=== PATIENT | female | born 1970 ===

== ENCOUNTER 2023-06-23 12:44 | Outpatient (CLI) | payer MEDICARE, MEDICAID | END 2023-06-23 23:59 | disposition home or self-care (01) | LOC: RAD 12:44 | PROVIDERS: ATTEND Nurse Practitioner Family | DX: Z12.2 Encounter for screening for malignant neoplasm of respiratory organs (principal); Z87.891 Personal history of nicotine dependence | CPT/HCPCS: 71250 ==